=== PATIENT | male | born 1990 | race Caucasian/White ===

== ENCOUNTER 2017-02-03 20:32 | Emergency (ER) | payer OTHER ==
[~2017-02-03] VITALS: Ht 165.1 cm; Wt 81.6 kg
[~2017-02-03 20:32] MED LIST: CEPHALEXIN500 M1 PO; CYCLOBENZAPRINE10 MG PO; KEPPRA750 MG PO; LAMICTAL100 MG PO; NAPROSYN500 MG PO; TRILEPTAL150 MG PO
[2017-02-03] MEDS ORDERED: B12100 MC1 PO (21:09)
== END 2017-02-03 21:57 | disposition home or self-care (01) ==
LOC: ED 20:32
DX: L98.8 Other specified disorders of the skin and subcutaneous tissue (principal); Z79.899 Other long term (current) drug therapy; Z88.8 Allergy status to other drugs, medicaments and biological substances

== ENCOUNTER 2017-05-05 17:14 | Inpatient (IN) | payer OTHER ==
[~2017-05-05] VITALS: Ht 165.1 cm; Wt 77.3 kg
[~2017-05-05 17:14] MED LIST changes: +B12100 MC1 PO
[2017-05-05 17:18] VITALS: BP 133/86
[2017-05-05 18:09] LABS: BASO % 0.4 % (0.0-1.0); EOS % 0.4 % (1.0-4.0); HEMATOCRIT 43.2 % (42.0-52.0); HEMOGLOBIN 14.8 g/dl (14.0-18.0); LYMPH # 0.4 10*3/uL (1.3-4.4); LYMPH % 7.9 % (27.0-41.0); MEAN CELL VOLUME 89.1 fl (80.0-94.0); MEAN CORPUSCULAR HGB 30.5 pg (27.0-31.0); MEAN CORPUSCULAR HGB CONC 34.3 g/dl (33.0-37.0); MEAN PLATELET VOLUME 8.8 fl (9.6-12.3); MONO # 0.6 10*3/uL (0.1-1.0); MONO % 11.5 % (3.0-9.0); NEUT % 79.6 % (47.0-73.0); PLATELET COUNT AUTOMATED 126 10*3/uL (130-400); RED BLOOD COUNT 4.85 10*6/uL (4.50-5.90); RED CELL DISTRI WIDTH 14.6 % (0-14.5); WHITE BLOOD COUNT 5.1 10*3/uL (4.8-10.8)
[2017-05-05 18:24] LABS: ALBUMIN 3.6 gm/dl (3.1-4.5); BUN 14 mg/dl (7-24); CHLORIDE 102 mmol/L (98-107); CREATININE 1.09 mg/dL (0.70-1.30); POTASSIUM 3.8 mmol/L (3.5-5.1); SGOT/AST 24 IU/L (3-35); SGPT/ALT 35 U/L (12-78); SODIUM 137 mmol/L (136-145)
[2017-05-05 18:25] LABS: ALKALINE PHOSPHATASE 102 U/L (45-117)
[2017-05-05 18:36] VITALS: BP 125/53
[2017-05-05 20:10] VITALS: BP 126/57
[2017-05-05 21:00] VITALS: BP 122/74
[2017-05-06] VITALS: BP 112/69
[2017-05-06 02:44] LABS: BASO % 0.2 % (0.0-1.0); EOS % 0.2 % (1.0-4.0); HEMATOCRIT 39.6 % (42.0-52.0); HEMOGLOBIN 13.4 g/dl (14.0-18.0); LYMPH # 0.6 10*3/uL (1.3-4.4); LYMPH % 11.1 % (27.0-41.0); MEAN CELL VOLUME 89.6 fl (80.0-94.0); MEAN CORPUSCULAR HGB 30.3 pg (27.0-31.0); MEAN CORPUSCULAR HGB CONC 33.8 g/dl (33.0-37.0); MEAN PLATELET VOLUME 7.9 fl (9.6-12.3); MONO # 0.6 10*3/uL (0.1-1.0); MONO % 12.7 % (3.0-9.0); NEUT # 3.8 10*3/uL (2.3-7.9); NEUT % 75.8 % (47.0-73.0); PLATELET COUNT AUTOMATED 92 10*3/uL (130-400); RED BLOOD COUNT 4.42 10*6/uL (4.50-5.90); RED CELL DISTRI WIDTH 14.8 % (0-14.5)
[2017-05-06 02:55] LABS: BUN 13 mg/dl (7-24); CHLORIDE 106 mmol/L (98-107); CREATININE 0.96 mg/dL (0.70-1.30); POTASSIUM 3.5 mmol/L (3.5-5.1); SODIUM 140 mmol/L (136-145)
[2017-05-06 03:01] LABS: CHOLESTEROL 96 mg/dL (<200); HDL CHOLESTEROL 42 mg/dl (40-60); LDL CHOLESTEROL 39 mg/dL (9-159); PHOSPHOROUS 2.3 mg/dL (2.5-4.9); TRIGLYCERIDES 73 mg/dl (<150); VLDL CHOLESTEROL 15 mg/dL (6-40)
[2017-05-06 06:45] LABS: VITAMIN D, 25-HYDROXY 22.7 ng/mL (30-100)
[2017-05-06 08:00] VITALS: BP 118/71
[2017-05-06 12:05] VITALS: BP 105/61
[2017-05-06 16:00] VITALS: BP 118/72
[2017-05-06 20:00] VITALS: BP 119/74
[2017-05-07] VITALS: BP 122/79
[2017-05-07 08:00] VITALS: BP 115/62
[2017-05-07 12:00] VITALS: BP 114/66
[2017-05-07] MEDS ORDERED: LEVOFLOXACIN500 MG PO (12:07)
== END 2017-05-07 13:03 | disposition home or self-care (01) | DRG 871 ==
LOC: ED 17:14 → EDHOLD 20:24 → 4E 20:24
PROVIDERS: Nurse Practitioner Family; Student in an Organized Health Care Education/Training Program
DX: A41.9 Sepsis, unspecified organism (principal); J18.0 Bronchopneumonia, unspecified organism; J10.08 Influenza due to other identified influenza virus with other specified pneumonia; D69.6 Thrombocytopenia, unspecified; E83.51 Hypocalcemia; E83.39 Other disorders of phosphorus metabolism; R73.9 Hyperglycemia, unspecified; G40.909 Epilepsy, unspecified, not intractable, without status epilepticus; Z72.0 Tobacco use; Z71.6 Tobacco abuse counseling; Z88.8 Allergy status to other drugs, medicaments and biological substances; Z91.013 Allergy to seafood; Z79.899 Other long term (current) drug therapy; Z82.49 Family history of ischemic heart disease and other diseases of the circulatory system; Z80.0 Family history of malignant neoplasm of digestive organs; Z83.3 Family history of diabetes mellitus

== ENCOUNTER 2018-03-14 17:38 | Emergency (ER) | payer BC, OTHER ==
[~2018-03-14] VITALS: Wt 81.6 kg
[~2018-03-14 17:38] MED LIST changes: +LEVOFLOXACIN500 MG PO
[2018-03-14] MEDS ORDERED: CEFADROXIL500 M1 PO (19:48)
[2018-03-14] MEDS ORDERED: NORCO 5-325 TA1 EACH PO (19:48)
== END 2018-03-14 19:53 | disposition home or self-care (01) ==
LOC: ED 17:38
DX: S92.511A Displaced fracture of proximal phalanx of right lesser toe(s), initial encounter for closed fracture (principal); S90.121A Contusion of right lesser toe(s) without damage to nail, initial encounter; Z88.6 Allergy status to analgesic agent; Z91.013 Allergy to seafood; Z88.8 Allergy status to other drugs, medicaments and biological substances; Z79.899 Other long term (current) drug therapy; W20.8XXA Other cause of strike by thrown, projected or falling object, initial encounter; Y93.89 Activity, other specified; Y92.098 Other place in other non-institutional residence as the place of occurrence of the external cause; Y99.8 Other external cause status

== ENCOUNTER 2018-11-11 18:40 | Emergency (ER) | payer BC, OTHER ==
[~2018-11-11] VITALS: Ht 165.1 cm; Wt 79.4 kg
[~2018-11-11 18:40] MED LIST changes: +CEFADROXIL500 M1 PO; +NORCO 5-325 TA1 EACH PO
== END 2018-11-11 20:57 | disposition home or self-care (01) ==
LOC: ED 18:40
DX: D17.22 Benign lipomatous neoplasm of skin and subcutaneous tissue of left arm (principal); F17.220 Nicotine dependence, chewing tobacco, uncomplicated; Z88.8 Allergy status to other drugs, medicaments and biological substances; Z88.6 Allergy status to analgesic agent; Z79.2 Long term (current) use of antibiotics; Z79.899 Other long term (current) drug therapy

== ENCOUNTER → 2018-12-25 | Outpatient (CLI) | payer OTHER | END | disposition home or self-care (01) | LOC: LAB 08:47 | DX: G40.119 Localization-related (focal) (partial) symptomatic epilepsy and epileptic syndromes with simple partial seizures, intractable, without status epilepticus (principal) ==

== ENCOUNTER 2019-11-18 11:17 | Emergency (ER) | payer BC, OTHER ==
[~2019-11-18] VITALS: Ht 167.6 cm; Wt 81.6 kg
[2019-11-18] MEDS ORDERED: CLARITIN10 MG PO (11:52)
[2019-11-18] MEDS ORDERED: FLONASE ALLERG9.9 ML NAS (11:52)
[2019-11-18] MEDS ORDERED: OCUFLOX 0.3% 5 M5 ML OPH (11:52)
== END 2019-11-18 11:59 | disposition home or self-care (01) ==
LOC: ED 11:17
DX: H10.12 Acute atopic conjunctivitis, left eye (principal); F17.220 Nicotine dependence, chewing tobacco, uncomplicated; Z91.013 Allergy to seafood; Z88.6 Allergy status to analgesic agent; Z91.018 Allergy to other foods; Z79.899 Other long term (current) drug therapy

== ENCOUNTER 2020-10-03 23:39 | Emergency (ER) | payer BC, OTHER ==
[~2020-10-03] VITALS: Ht 165.1 cm; Wt 86.2 kg
[~2020-10-03 23:39] MED LIST changes: +CLARITIN10 MG PO; +FLONASE ALLERG9.9 ML NAS; +OCUFLOX 0.3% 5 M5 ML OPH
[2020-10-04] MEDS ORDERED: ZONISAMIDE100 MG PO (00:03)
[2020-10-04] MEDS ORDERED: LAMOTRIGINE200 MG PO (00:04)
[2020-10-04 01:35] LABS: BILIRUBIN Negative (Negative); BLOOD Negative (Negative); CLARITY Clear (Clear); COLOR Yellow (Yellow); GLUCOSE Negative (Negative); KETONE Negative (Negative); LEUKO ESTERASE Negative (Negative); NITRITE Negative (Negative); SPECIFIC GRAVITY >= 1.030 (1.001-1.030)
[2020-10-04 01:53] LABS: BACTERIA TRACE; RBC 0-2 rbc/hpf (0-2)
[2020-10-04] MEDS ORDERED: CYCLOBENZAPRINE10 MG PO (02:43)
[2020-10-04] MEDS ORDERED: PREDNISONE20 M1 PO (02:43)
== END 2020-10-04 03:12 | disposition home or self-care (01) ==
LOC: ED 23:39
PROVIDERS: Emergency Medicine
DX: M47.816 Spondylosis without myelopathy or radiculopathy, lumbar region (principal); R10.31 Right lower quadrant pain; M79.604 Pain in right leg; G40.909 Epilepsy, unspecified, not intractable, without status epilepticus; F17.220 Nicotine dependence, chewing tobacco, uncomplicated; Z88.8 Allergy status to other drugs, medicaments and biological substances; Z88.6 Allergy status to analgesic agent; Z79.899 Other long term (current) drug therapy

== ENCOUNTER → 2021-08-24 | Outpatient (CLI) | payer BC, OTHER ==
[~2021-08-24] MED LIST changes: +LAMOTRIGINE200 MG PO; +PREDNISONE20 M1 PO; +ZONISAMIDE100 MG PO
[2021-08-26 04:06] LABS: RHEUMATOID FACTOR <10.0 IU/mL (<14.0)
[2021-08-30 22:07] LABS: HLA-B27 ANTIGEN Negative (.)
== END | disposition home or self-care (01) ==
LOC: LAB 18:12 → RAD 18:12
PROVIDERS: ATTEND Chiropractor Orthopedic
DX: M16.11 Unilateral primary osteoarthritis, right hip (principal); M47.814 Spondylosis without myelopathy or radiculopathy, thoracic region; M47.817 Spondylosis without myelopathy or radiculopathy, lumbosacral region; M99.02 Segmental and somatic dysfunction of thoracic region

== ENCOUNTER → 2022-04-05 | Outpatient (CLI) | payer BC, OTHER ==
[2022-04-05 16:13] LABS: BASO % 0.3 % (0.0-1.0); EOS # 0.1 10*3/uL (0.0-0.4); EOS % 1.1 % (1.0-4.0); HEMATOCRIT 45.8 % (42.0-52.0); LYMPH # 1.5 10*3/uL (1.3-4.4); LYMPH % 24.1 % (27.0-41.0); MEAN CELL VOLUME 91.2 fl (80.0-94.0); MEAN CORPUSCULAR HGB 30.9 pg (27.0-31.0); MEAN CORPUSCULAR HGB CONC 33.8 g/dl (33.0-37.0); MEAN PLATELET VOLUME 8.4 fl (9.6-12.3); MONO # 0.7 10*3/uL (0.1-1.0); NEUT # 3.9 10*3/uL (2.3-7.9); NEUT % 63.3 % (47.0-73.0); PLATELET COUNT AUTOMATED 147 10*3/uL (130-400); RED BLOOD COUNT 5.02 10*6/uL (4.50-5.90); RED CELL DISTRI WIDTH 13.8 % (0-14.5); WHITE BLOOD COUNT 6.2 10*3/uL (4.8-10.8)
[2022-04-05 16:31] LABS: ALKALINE PHOSPHATASE 83 U/L (46-116); BUN 11 mg/dl (9-23); CHLORIDE 104 mmol/L (98-107); POTASSIUM 3.9 mmol/L (3.4-5.1); SGPT/ALT 30 U/L (10-49); TOTAL PROTEIN 7.1 gm/dL (6.0-8.0)
== END | disposition home or self-care (01) ==
LOC: LAB 15:48
PROVIDERS: ATTEND Psychiatry & Neurology Neurology
DX: G40.109 Localization-related (focal) (partial) symptomatic epilepsy and epileptic syndromes with simple partial seizures, not intractable, without status epilepticus (principal)

== ENCOUNTER 2022-04-08 18:15 | Emergency (ER) | payer BC, OTHER ==
[~2022-04-08] VITALS: Ht 165.1 cm; Wt 86.2 kg
== END 2022-04-08 19:36 | disposition home or self-care (01) ==
LOC: ED 18:15
DX: S80.11XA Contusion of right lower leg, initial encounter (principal); Z88.8 Allergy status to other drugs, medicaments and biological substances; Z91.013 Allergy to seafood; F17.220 Nicotine dependence, chewing tobacco, uncomplicated; W22.8XXA Striking against or struck by other objects, initial encounter; Y93.89 Activity, other specified; Y92.89 Other specified places as the place of occurrence of the external cause; Y99.8 Other external cause status

== ENCOUNTER 2023-06-24 14:21 | Emergency (ER) | payer OTHER ==
[~2023-06-24] VITALS: Ht 165.1 cm; Wt 88.5 kg
[2023-06-24] MEDS ORDERED: Acetaminophen/Oxycodone Hydr 7.5 MG/325 MG TABLET PO ONE (17:15)
== END 2023-06-24 17:24 | disposition home or self-care (01) ==
LOC: ED 14:21
DX: K04.7 Periapical abscess without sinus (principal); G40.909 Epilepsy, unspecified, not intractable, without status epilepticus; F17.220 Nicotine dependence, chewing tobacco, uncomplicated; Z88.8 Allergy status to other drugs, medicaments and biological substances; Z79.899 Other long term (current) drug therapy

== ENCOUNTER 2023-10-19 07:01 | Emergency (ER) | payer OTHER, MEDICAID ==
[~2023-10-19] VITALS: Ht 165.1 cm; Wt 81.6 kg
== END 2023-10-19 10:11 | disposition home or self-care (01) ==
LOC: ED 07:01
DX: S06.0X1A Concussion with loss of consciousness of 30 minutes or less, initial encounter (principal); S40.812A Abrasion of left upper arm, initial encounter; S00.81XA Abrasion of other part of head, initial encounter; S00.01XA Abrasion of scalp, initial encounter; M25.561 Pain in right knee; M25.551 Pain in right hip; F17.220 Nicotine dependence, chewing tobacco, uncomplicated; Z88.6 Allergy status to analgesic agent; Z88.8 Allergy status to other drugs, medicaments and biological substances; Z91.013 Allergy to seafood; V49.49XA Driver injured in collision with other motor vehicles in traffic accident, initial encounter; Y93.89 Activity, other specified; Y92.410 Unspecified street and highway as the place of occurrence of the external cause; Y99.8 Other external cause status

== ENCOUNTER 2023-10-20 13:16 | Emergency (ER) | payer OTHER, MEDICAID ==
[~2023-10-20] VITALS: Ht 165.1 cm; Wt 81.6 kg
[2023-10-20] MEDS ORDERED: ACETAMINOPHEN 325 MG TAB PO ONE (17:00)
== END 2023-10-20 19:09 | disposition home or self-care (01) ==
LOC: ED 13:16
DX: M79.652 Pain in left thigh (principal); M25.562 Pain in left knee; E83.51 Hypocalcemia; E83.39 Other disorders of phosphorus metabolism; F17.220 Nicotine dependence, chewing tobacco, uncomplicated; Z88.8 Allergy status to other drugs, medicaments and biological substances; Z88.6 Allergy status to analgesic agent; Z91.013 Allergy to seafood